=== PATIENT | male | born 1980 | race African-American/Black ===

== ENCOUNTER 2023-05-10 23:09 | Emergency (ER) | payer SELFPAY ==
[~2023-05-10] VITALS: Ht 177.8 cm; Wt 84.0 kg
[2023-05-10 23:18] VITALS: TEMP 98.4; O2SAT 97
[2023-05-10 23:49] LABS: BASOPHILS % 0.8 % (0.0-2.0); EOSINOPHILS % 0.3 % (0.0-5.0); HEMATOCRIT. 45.9 % (42.0-52.0); HEMOGLOBIN. 15.5 g/dL (14.0-18.0); LYMPHOCYTES % 12.1 % (20.0-50.0); MEAN CORPUSCULAR HEMOGLOBIN 31.3 pg (28.0-32.0); MEAN CORPUSCULAR HGB CONC 33.8 g/dL (31.0-37.0); MEAN CORPUSCULAR VOLUME 92.5 fL (80.0-94.0); MONOCYTES % 7.7 % (2.0-8.0); NEUTROPHILS % 79.1 % (40.0-76.0); PLATELET 286 x1000/uL (130-400); RED BLOOD CELL COUNT 4.96 mill/uL (4.7-6.1); WHITE BLOOD COUNT 20.5 x1000/uL (4.5-11.0)
[2023-05-11 00:01] LABS: ALANINE AMINOTRANSFERASE 14 IU/L (10-49); ALBUMIN 5.2 g/dL (3.2-4.8); ASPARTATE AMINOTRANSFERASE 14 IU/L (<34); BILIRUBIN TOTAL 0.7 mg/dL (0.1-1.0); CALCIUM 10.4 mg/dL (8.7-10.4); CARBON DIOXIDE 26 mEq/L (21-32); CHLORIDE 105 mEq/L (98-107); CREATININE 1.1 mg/dL (0.6-1.3); GLUCOSE 90 mg/dL (70-105); POTASSIUM 3.8 mEq/L (3.5-5.1); PROTEIN TOTAL 8.8 g/dL (6.0-8.3); SODIUM 137 mEq/L (136-145); TROPONIN I HIGH SENSITIVITY 39 ng/L (3.0-53); UREA NITROGEN BLOOD 16 mg/dL (9-23)
[2023-05-11 00:04] LABS: ETHANOL BLOOD < 10 mg/dL (<10)
[2023-05-11] MEDS: KETOROLAC 15MG/ML VIAL IV NR (00:24)
[2023-05-11] MEDS: SODIUM CHLORIDE 0.9% 1,000 ML IV ONE (00:24)
[2023-05-11] MEDS: FAMOTIDINE 20MG/2ML VIAL IV ONE (00:24)
[2023-05-11 03:41] VITALS: BP 179/109; PULSE 85; RESP 23
== END 2023-05-11 03:55 | disposition home or self-care (01) ==
LOC: ER 23:13
DX: R10.13 Epigastric pain (principal); I10 Essential (primary) hypertension
CPT/HCPCS: 80053; 80320; 83605; 83690; 85025; 84484; 36415; 99285; 74176; 96361; 96374; 96375; J7030; J3490; J1885; G0480